=== PATIENT | female | born 1980 | race Caucasian/White ===

== ENCOUNTER 2018-06-18 20:16 | Emergency (ER) | payer SELFPAY ==
[2018-06-18 20:46] LABS: ABSOLUTE BASOPHILS # (AUTO) 0.1 10^3/uL (0.0-0.2); ABSOLUTE EOSINOPHILS # (AUTO) 0.1 10^3/uL (0.0-0.6); ABSOLUTE MONOCYTES (AUTO) 0.6 10^3/uL (0.1-1.4); ABSOLUTE NEUT (AUTO) 5.2 10^3/uL (1.7-8.2); BASOPHILS % (AUTO) 0.8 % (0-2); EOSINOPHILS % (AUTO) 1.8 % (0-6); HEMOGLOBIN 11.5 g/dL (12.0-15.5); LYMPHOCYTES % (AUTO) 24.8 % (13-45); MEAN CORPUSCULAR HEMOGLOBIN 24.6 pg (27.0-33.4); MEAN CORPUSCULAR HGB CONC 32.7 g/dL (32.0-36.0); MEAN CORPUSCULAR VOLUME 75 fl (80-97); MONOCYTES % (AUTO) 7.1 % (3-13); PLATELET COUNT 267 10^3/uL (150-450); RED BLOOD COUNT 4.67 10^6/uL (3.72-5.28); RED CELL DISTRIBUTION WIDTH 18.8 % (11.5-14.0); SEGMENTED NEUTROPHILS % (AUTO) 65.5 % (42-78); TOTAL CELLS COUNTED % (AUTO) 100 %; WHITE BLOOD COUNT 7.9 10^3/uL (4.0-10.5)
[2018-06-18 20:58] LABS: ALANINE AMINOTRANSFERASE 16 U/L (9-52); ALKALINE PHOSPHATASE 62 U/L (38-126); ANION GAP 7 (5-19); ASPARTATE AMINO TRANSFERASE 14 U/L (14-36); BILIRUBIN,DIRECT 0.3 mg/dL (0.0-0.4); BILIRUBIN,TOTAL 0.3 mg/dL (0.2-1.3); BLOOD UREA NITROGEN 17 mg/dL (7-20); CALCIUM 9.4 mg/dL (8.4-10.2); CARBON DIOXIDE 21 mmol/L (22-30); CHLORIDE 111 mmol/L (98-107); CREATINE KINASE 40 U/L (30-135); GLUCOSE 89 mg/dL (75-110); POTASSIUM 3.9 mmol/L (3.6-5.0)
[2018-06-18 21:09] LABS: CREATINE KINASE MB 0.31 ng/mL (<4.55)
--- NOTE | 2018-06-18 21:09 | EKG REPORT ---
SEVERITY:- ABNORMAL ECG - SINUS TACHYCARDIA BORDERLINE PROLONGED QT INTERVAL LEFT POST FASCICULAR BLOCK : Confirmed by: Tyree Fang MD 18-Jun-2018 21:08:39
[2018-06-18 21:10] LABS: TROPONIN I < 0.012 ng/mL
[2018-06-18 21:46] VITALS: BP 153/98
--- NOTE | 2018-06-18 21:57 | ER Document Report ---
ED General - General Chief Complaint: Possible Overdose Stated Complaint: POSSIBLE OVERDOSE Time Seen by Provider: 06/18/18 20:41 Cannot obtain history due to: Uncooperative Notes: Patient is a 38-year-old female with a past medical history of anxiety, depression, presents due to concerns that she took an unknown quantity of quetiapine. EMS was contacted by the patient's who states that he found the patient minimally responsive in the bed and he noticed that multiple tabs of his Seroquel prescription were missing. The patient and report that she often takes his quetiapine to try to help her sleep. The patient states that she only took 3-4 of the 50 mg tablets. had initially reported that the patient took 25 of these tablets but now at bedside reneged on the story stating that he does not how many pills she actually took. The patient denies any associated coingestions. The patient is adamant that this was not a suicide attempt, states she was simply trying to sleep. The states that he feels like he overreacted and probably should have let her "just sleep it off". History is otherwise limited as the patient is quite agitated, demanding to leave on my initial assessment. gives very conflicting information. Past Medical History - General Information source: Patient, Relative - Social History Smoking Status: Never Smoker Chew tobacco use (# tins/day): No Frequency of alcohol use: Occasional Drug Abuse: None Lives with: Spouse/Significant other Family History: Reviewed & Not Pertinent Patient has suicidal ideation: No Patient has homicidal ideation: No Renal/ Medical History: Denies: Hx Peritoneal Dialysis Review of Systems - Review of Systems Notes: Constitutional: Negative for fever. HENT: Negative for sore throat. Eyes: Negative for visual changes. Cardiovascular: Negative for chest pain. Respiratory: Negative for shortness of breath. Gastrointestinal: Negative for abdominal pain, vomiting or diarrhea. Genitourinary: Negative for dysuria. Musculoskeletal: Negative for back pain. Skin: Negative for rash. Neurological: Negative for headaches, weakness or numbness. 10 point ROS negative except as marked above and in HPI. Physical Exam - Vital signs Vitals: Resp BP Pulse Ox 25 H 146/92 H 100 06/18/18 20:35 06/18/18 20:35 06/18/18 20:35 Interpretation: Hypertensive Notes: PHYSICAL EXAMINATION: GENERAL: Lying in bed in no distress HEAD: Atraumatic, normocephalic. EYES: Pupils equal round and reactive to light, extraocular movements intact, sclera anicteric, conjunctiva are normal. ENT: nares patent, oropharynx clear without exudates. Moist mucous membranes. NECK: Normal range of motion, supple without lymphadenopathy LUNGS: Breath sounds clear to auscultation bilaterally and equal. No wheezes rales or rhonchi. HEART: Regular rate and rhythm without murmurs ABDOMEN: Soft, morbidly obese, nontender, normoactive bowel sounds. No guarding, no rebound. No masses appreciated. EXTREMITIES: Normal range of motion, no pitting or edema. No cyanosis. NEUROLOGICAL: No focal neurological deficits. Moves all extremities spontaneously and on command. PSYCH: Somewhat agitated SKIN: Warm, Dry, normal turgor, no rashes or lesions noted. Course - Re-evaluation Re-evalutation: 06/18/18 21:47 Patient presents after allegedly taking an unknown number of Seroquel tablets. Initially the report was that the patient took 21 50 mg Seroquel pills. At the time of my evaluation the who is the one who we contacted the EMS is now stating "I do not know how many she actually took it could have been anywhere between 8 and 20". The patient states that she only took 3, did this because she was trying to get some sleep, has been taking his medication regularly with her 's consent to help her sleep at night. The likewise states he does not know how many the took, he was not present when she took the medication. He states that she has not expressed suicidal ideation at any point. The patient is quite agitated states that she wants to go home adamantly refusing any further period of monitoring and states that she at no point has been suicidal, is not actively suicidal, was simply try to get sleep. The corroborates this stating that he feels stupid for having called 911, he was worried because she was sleepy but does not think that she was trying to harm herself. He states that he believes she is safe to be discharged home. There are no other people whom I could call for collateral history as it is a and and small children who live in the home. The patient has no previous history of mental health hospitalizations or suicide attempts both by her report and the report of the who has been with her for 15 years. She has no evidence of QT prolongation. She is not significantly sedated which would be unusual if she truly had taken as much Seroquel as it was initially reported. In any event, poison control had been contacted and recommended a total of 6 hours of observation from the time of initial alleged ingestion was 1600. This 6-hour period of observation has been completed. Given that the patient is currently awake, alert, oriented, denies SI and her who is at the bedside likewise corroborates that he does not believe the patient was suicidal at any point either prior to the ingestion or currently I do not have grounds but wished to hold her against her will. She will be discharged at her request. 06/19/18 04:00 - Vital Signs Vital signs: Temp Pulse Resp BP Pulse Ox 98.2 F 85 23 H 153/98 H 98 06/18/18 21:43 06/18/18 20:37 06/18/18 21:43 06/18/18 21:43 06/18/18 21:43 - Laboratory Result Diagrams: 06/18/18 20:30 06/18/18 20:30 Laboratory results interpreted by me: 06/18/18 06/18/18 06/18/18 20:30 20:30 20:32 Hgb 11.5 L Hct 35.0 L MCV 75 L MCH 24.6 L RDW 18.8 H Chloride 111 H Carbon Dioxide 21 L Salicylates < 1.0 L Acetaminophen < 10 L - EKG Interpretation by Me Additional EKG results interpreted by me: 06/18/18 21:46 Sinus rhythm, rate 107. No ST elevations or depressions. QT normal range at 491 Discharge - Discharge Clinical Impression: Misuse of drugs Medication overdose Qualifiers: Encounter type: initial encounter Injury intent: undetermined intent Qualified Code(s): T50.904A - Poisoning by unspecified drugs, medicaments and biological substances, undetermined, initial encounter Condition: Good Disposition: HOME, SELF-CARE Additional Instructions: Please return if you have thoughts of wanting to hurt yourself, hurt others, or have any other symptoms that are concerning to you. Never take medications that are not prescribed to you.
[2018-06-18 22:04] LABS: ACETAMINOPHEN < 10 ug/mL (10-30); SALICYLATE < 1.0 mg/dL (2.0-20.0)
== END 2018-06-18 22:03 | disposition home or self-care (01) ==
LOC: ER 20:16
DX: T43.591A Poisoning by other antipsychotics and neuroleptics, accidental (unintentional), initial encounter (principal); Y92.009 Unspecified place in unspecified non-institutional (private) residence as the place of occurrence of the external cause; E66.01 Morbid (severe) obesity due to excess calories
CPT/HCPCS: 36415; 80053; 80307; 82550; 82553; 84484; 85025; 93005; 93010; 99284